=== PATIENT | female | born 1940 | race American Indian/Alaskan Native ===

== ENCOUNTER 2016-11-24 13:36 | Emergency (ER) | payer MEDICARE ==
[~2016-11-24 13:36] MED LIST: ATIVAN IV ONE; ATIVAN ONE; GEODON IM ONE; WATER FOR INJ (PF) 10 ML ONE
--- NOTE | 2016-11-24 16:03 | Emergency Department Report ---
ED Psych HPI - General Chief Complaint: Psych Stated Complaint: COMBATIVE Time Seen by Provider: 11/24/16 14:58 Source: family Mode of arrival: Ambulatory - History of Present Illness Initial Comments: 76-year-old female with aggressive behavior. Patient was agitated and screaming when she came into the emergency department. She appears to be clearly psychotic. She does not answer any questions in the emergency department. She was initially given Geodon and Ativan on arrival. 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 Absent: scleral icterus, conjunctival injection - ENT ENT exam: Present: mucous membranes dry - Neck Neck exam: Absent: lymphadenopathy, thyromegaly - Respiratory Respiratory exam: Present: normal lung sounds bilaterally. Absent: respiratory distress - Cardiovascular Cardiovascular Exam: Present: regular rate, normal rhythm. Absent: normal heart sounds - GI/Abdominal GI/Abdominal exam: Present: soft. Absent: distended, tenderness - Neurological Exam Neurological exam: Present: alert. Absent: motor sensory deficit - Psychiatric Psychiatric exam: Present: agitated - Skin Skin exam: Present: warm, dry, intact ED Course Vital Signs 11/24/16 14:59 Respiratory 18 Rate ED Medical Decision Making - Lab Data Result diagrams: 11/24/16 15:54 Laboratory Results - last 24 hr 11/24/16 15:54 WBC 10.5 RBC 4.55 Hgb 12.4 Hct 38.8 MCV 85 MCH 27 L MCHC 32 RDW 15.0 Lymph % (Auto) 16.5 [place] % (Auto) 8.5 H Eos % (Auto) 0.5 Baso % (Auto) 0.8 Lymph # 1.7 [place] # 0.9 H Eos # 0.1 Baso # 0.1 Seg Neutrophils % 73.7 H Seg Neutrophils # 7.7 - Medical Decision Making 76-year-old female with a known history of psychiatric illness here with agitation and likely acute psychosis. Plan 1013 the patient for the time being we'll administer additional psychiatric meds as needed. No obvious medical source for symptoms. Plan to medically clear the patient is having normal labs. Portions of this chart were dictated with dictation software. There may be dictation errors contained within this note. Critical care attestation.: If time is entered above; I have spent that time in minutes in the direct care of this critically ill patient, excluding procedure time. ED Disposition Clinical Impression: Dementia, Psychosis Disposition: DC/TX-70 ANOTHER TYPE HLTHCARE Is pt being admited?: No Condition: Stable Referrals: PRIMARY CARE, [Primary Care Provider] - 3-5 Days
[2016-11-24 16:18] LABS: Basophils % (Auto) 0.8 % (0.0-1.8); Eosinophils % (Auto) 0.5 % (0.0-4.3); Hematocrit 38.8 % (30.3-42.9); Hemoglobin 12.4 gm/dl (10.1-14.3); Mean Corpuscular HGB Conc 32 % (30-34); Mean Corpuscular Hemoglobin 27 pg (28-32); Mean Corpuscular Volume 85 fl (79-97); Red Blood Count 4.55 M/mm3 (3.65-5.03); White Blood Count 10.5 K/mm3 (4.5-11.0)
[2016-11-24 16:29] LABS: Alanine Aminotransferase 21 units/L (7-56); Albumin 4.5 g/dL (3.9-5); Albumin/Globulin Ratio 1.2 %; Alkaline Phosphatase 58 units/L (35-129); Anion Gap 16 mmol/L; BUN/Creatinine Ratio 17; Blood Urea Nitrogen 15 mg/dL (7-17); Calcium 10.4 mg/dL (8.4-10.2); Carbon Dioxide 29 mmol/L (22-30); Chloride 100.9 mmol/L (98-107); Glucose 93 mg/dL (65-100); Potassium 4.4 mmol/L (3.6-5.0); Sodium 141 mmol/L (137-145); Total Protein 8.4 g/dL (6.3-8.2)
[2016-11-24 16:30] LABS: Platelet Count 218 K/mm3 (140-440)
[2016-11-24] MEDS ORDERED: GEODON IM ONE ×2 (19:50→19:59)
[2016-11-25] MEDS ORDERED: GEODON IM ONE (08:20)
[2016-11-25] MEDS ORDERED: ATIVAN PO ONE (08:20)
[2016-11-25] MEDS ORDERED: ATIVAN IM ONE (08:31)
[2016-11-25] MEDS ORDERED: WATER FOR INJ (PF) 10 ML ONE (08:37)
[2016-11-25 09:58] LABS: Urine Drugs of Abuse Note Disclamer
[2016-11-25 10:11] LABS: Bilirubin,Urine NEG (Negative); Blood,Urine NEG (Negative); Ketones,Urine TR mg/dL (Negative); Leukocyte Esterase,Urine NEG (Negative); Mucus,Urine FEW /HPF; Nitrite,Urine NEG (Negative); Protein,Urine <15 mg/dL mg/dL (Negative); RBC,Urine < 1.0 /HPF (0.0-6.0); Urobilinogen,Urine < 2.0 mg/dL (<2.0)
--- NOTE | 2016-11-25 13:45 | Consultation ---
History of Present Illness - Reason for Consult Consult date: 11/25/16 Reason for consult: Mental Health Evaluation Requesting physician: SHARON QUARLES - Chief Complaint Chief complaint: "Nonverbal" - History of Present Psychiatric Illness 76-year-old female with aggressive behavior, possibly psychosis. Today patient is calm during the assessment. She would only say a few words to me when questioned. She kept her head covered with the bed sheets the entire time during the assessment. Per the staff, the patient was agitated on admission. Per her ride assembly supervisor Ms Cecile Bain at [phone], she stated that the patient has a mental health dx of schizophrenia and a medical dx of dementia. She stated that the patient has been hospitalized recently at [place] for psychosis. She stated that the patient will not eat and have not taken her medications the past couple weeks. Per Ms Cecile Bain, patient has taken Risperdal in the past. No gestures of SI/HI's. Medications and Allergies Allergies Allergy/AdvReac Type Severity Reaction Status Date / Time No Known Allergies Allergy Unverified 11/24/16 13:37 Home Medications Medication Instructions Recorded Confirmed Last Taken Type No Known Home Medications [No 11/24/16 11/24/16 Unknown History Reported Home Medications] Past psychiatric history - Past Medical History Past Medical History: other (Dementia) Past Surgical History: Other (Unable to assess) - past Psychiatric treatment and history psychiatric treatment history: Unable to obtain psy hx and a fam psy hx. - Social History Social history: other (Per note, live with a ride assembly supervisor) Mental Status Exam - Vital signs Last Vital Signs Temp 98.0 F 11/25/16 04:00 Pulse 85 11/25/16 08:40 Resp 18 11/25/16 08:40 BP 119/63 11/25/16 08:40 Pulse Ox 98 11/25/16 04:00 - Exam Narrative exam: MSE: Appearance: calm Behavior: poor eye contact Speech: regular rate and tone Mood: unable to assess Affect: labile Thought Process: unable to assess Thought Content: no gestures of SI/HI's and VH's Motor Activity: lying in bed, periods of agitation Cognition: A/O x1 Insight: impaired Judgment: impaired Results Result Diagrams: 11/24/16 15:54 11/24/16 15:54 Abnormal lab results 11/24/16 11/24/1611/24/17 Range/Units 15:54 15:54 15:54 MCH 27 L (28-32) pg [place]are % (Auto) 8.5 H (0.0-7.3) % Dare # 0.9 H (0.0-0.8) K/mm3 Seg Neutrophils % 73.7 H (40.0-70.0) % Calcium 10.4 H (8.4-10.2) mg/dL Total Protein 8.4 H (6.3-8.2) g/dL Salicylates < 0.3 L (2.8-20.0) mg/dL All other labs normal. Assessment and Plan Assessment and plan: Impression: Historical Dx: Schizophrenia/Dementia. Unspecified Psychosis. Today patient is calm during the assessment. Patient is functionally declining and cannot take care of herself at this time. Ms Cecile Bain stated that the patient cannot return to her care once discharged. UDS negative. Recommendation/Plan: Continue 1013 with pending placement to [facility]. Left voicemail for her daughter Odalys Bassett at [phone] (for collateral). Start Risperdal 0.5 mg PO HS for psychosis. Delirium precautions below: 1. Frequently reorient patient and involve him/her in their care (simple explanations of procedures, tests, medications). 2. Lights on and shades open during daytime hours. 3. Try to avoid unnecessary interruptions to sleep during nighttime hours. 4. Obtain glasses, hearing aids from home if patient uses these at baseline. 5. Avoid medications that may exacerbate delirium (especially narcotics, barbiturates, ambien, lunesta, benzos, and medications with excessive anticholinergic properties).
[2016-11-25] MEDS ORDERED: HALDOL IM PRN (14:29)
[2016-11-26] MEDS: RisperDAL PO SCH ×2 (00:07→22:32)
--- NOTE | 2016-11-26 13:40 | Progress Note ---
Subjective - Reason for Consult Reason for consult: guarded and not cooperative - Chief Complaint Chief complaint: Patient still mostly non-verbal. She was irritable on examination and refused to engage further. Per discussion with nursing staff, she has not had any verbal or physical aggression. She is engaging in regular PO intake and vitals are stable. Mental Status Exam - Vital signs Last Vital Signs Temp 98.7 F 11/25/16 20:00 Pulse 90 11/25/16 20:00 Resp 17 11/26/16 10:00 BP 115/99 11/25/16 20:00 Pulse Ox 100 11/26/16 10:00 - Exam Affect: depressed, anxious Mood: anxious Thought content: other (ANNETTE) Perceptions: other (ANNETTE) Speech: other (mostly selectively mute) Motor activity: lethargic Level of consciousness: other (sleepy) Sleep Symptoms: None (ANNETTE) Interaction: guarded, uncooperative Assessment and Plan Plan: Patient has been referred to [place] for inpatient level of care to assure she can get assessed and treated for her current illness. Furthermore, she will require placement to another facility as the current caregiver is no longer willing to take her back. Continue current medication regimen
--- NOTE | 2016-11-27 16:58 | Progress Note ---
Subjective - Reason for Consult Consult date: 11/27/16 Reason for consult: psychiatric follow up - Chief Complaint Chief complaint: She asked for assistance to the bathroom and requested assistance in getting her food tray. She stated she wanted to go home. She otherwise did not participate in the interview. Per discussion with nursing staff, she has not had any verbal or physical aggression. Mental Status Exam - Vital signs Last Vital Signs Temp 98.4 F 11/27/16 07:31 Pulse 63 11/27/16 07:31 Resp 18 11/27/16 11:53 BP 102/45 11/27/16 07:31 Pulse Ox 98 11/27/16 11:53 Assessment and Plan - Exam Affect: anxous Mood: anxious Thought content: perseverative about going to the bathroom Perceptions: other (ANNETTE) Speech: loud at times Motor activity: no abnormal movements. Level of consciousness: alert Sleep Symptoms: None (ANNETTE) Interaction: guarded Assessment and Plan Plan: Patient has been referred to [place] for inpatient level of care to assure she can get assessed and treated for her current illness. Furthermore, she will require placement to another facility as the current caregiver is no longer willing to take her back. Continue current medication regimen
[2016-11-27] MEDS: RisperDAL PO SCH (21:32)
--- NOTE | 2016-11-28 11:11 | Progress Note ---
Subjective - Reason for Consult Consult date: 11/28/16 Reason for consult: Psychiatry Follow-up - Chief Complaint Chief complaint: "Hello" 76-year-old female with aggressive behavior, possibly psychosis. Today patient is calm during the assessment. She asked me for something more to eat during the assessment. Patient had to be redirected several time to complete the interview. Patient is more engaging today then the initial assessment 2016. She denies SI/HI's and AVH's. Per the staff, patient is eating her meals and taking her medication. Mental Status Exam - Vital signs Last Vital Signs Temp 98 F 11/27/16 20:15 Pulse 63 11/28/16 04:00 Resp 18 11/27/16 20:15 BP 101/54 11/28/16 04:00 Pulse Ox 98 11/27/16 11:53 - Exam Narrative exam: MSE: Appearance: calm Behavior: poor eye contact Speech: regular rate and tone Mood: "okay" Affect: congruent to mood Thought Process: tangential Thought Content: denies SI/HI's and AVH's Motor Activity: lying in bed Cognition: A/O x2 Insight: limited Judgment: limited Assessment and Plan Impression: Historical Dx: Schizophrenia/Dementia. Unspecified Psychosis. Today patient is calm during the assessment. Patient is functionally declining and cannot take care of herself at this time. Ms Cecile Bain stated that the patient cannot return to her care once discharged. UDS negative. Recommendation/Plan: Continue 1013 with pending placement to [facility] to be assessed and get treated for her current illness. Continue Risperdal 0.5 mg PO HS for psychosis. Delirium precautions below: 1. Frequently reorient patient and involve him/her in their care (simple explanations of procedures, tests, medications). 2. Lights on and shades open during daytime hours. 3. Try to avoid unnecessary interruptions to sleep during nighttime hours. 4. Obtain glasses, hearing aids from home if patient uses these at baseline. 5. Avoid medications that may exacerbate delirium (especially narcotics, barbiturates, ambien, lunesta, benzos, and medications with excessive anticholinergic properties).
[2016-11-28 22:11] VITALS: BP 137/103
== END 2016-11-28 21:30 | disposition other institution (70) ==
LOC: ED 13:36 → EEVIPCON 13:36 → ED 11-28 21:30
DX: F03.90 Unspecified dementia, unspecified severity, without behavioral disturbance, psychotic disturbance, mood disturbance, and anxiety (principal); F31.9 Bipolar disorder, unspecified; F20.9 Schizophrenia, unspecified
CPT/HCPCS: 36415; 80053; 80307; 81001; 85025; 96372; 96374; 99285; G0480; J2060; J3486; 80320

== ENCOUNTER 2017-06-16 11:05 | Emergency (ER) | payer MEDICARE, OTHER ==
[2017-06-16] MEDS ORDERED: NACL 0.9% 1000 ML 1,000 ML IV ONE (11:53)
[2017-06-16] MEDS ORDERED: ZOFRAN IV ONE (11:53)
[2017-06-16 12:12] LABS: Basophils % (Auto) 0.4 % (0.0-1.8); Eosinophils # (Auto) 0.1 K/mm3 (0.0-0.4); Eosinophils % (Auto) 2.3 % (0.0-4.3); Hematocrit 35.1 % (30.3-42.9); Hemoglobin 11.1 gm/dl (10.1-14.3); Lymphocytes # (Auto) 1.2 K/mm3 (1.2-5.4); Lymphocytes % (Auto) 22.6 % (13.4-35.0); Mean Corpuscular HGB Conc 32 % (30-34); Mean Corpuscular Hemoglobin 28 pg (28-32); Mean Corpuscular Volume 88 fl (79-97); Monocytes # (Auto) 0.7 K/mm3 (0.0-0.8); Monocytes % (Auto) 12.5 % (0.0-7.3); Platelet Count 144 K/mm3 (140-440); Red Blood Count 3.97 M/mm3 (3.65-5.03); Red Cell Distribution Width 14.2 % (13.2-15.2)
[2017-06-16 12:25] LABS: Alanine Aminotransferase 9 units/L (7-56); Albumin 3.9 g/dL (3.9-5); BUN/Creatinine Ratio 18; Blood Urea Nitrogen 14 mg/dL (7-17); Calcium 9.3 mg/dL (8.4-10.2); Hemolysis Index 76; Lipase 40 units/L (13-60)
[2017-06-16 12:26] LABS: Bilirubin,Direct < 0.2 mg/dL (0-0.2)
[2017-06-16 12:32] LABS: Free T4 (Free Thyroxine) 0.65 ng/dL (0.76-1.46)
[2017-06-16 12:46] LABS: Bacteria,Urine 1+ /HPF (Negative); Bilirubin,Urine NEG (Negative); Blood,Urine NEG (Negative); Color,Urine Yellow (Yellow); Protein,Urine <15 mg/dL mg/dL (Negative); RBC,Urine < 1.0 /HPF (0.0-6.0); Urobilinogen,Urine < 2.0 mg/dL (<2.0)
--- NOTE | 2017-06-16 14:10 | Emergency Department Report ---
ED General Adult HPI - General Chief complaint: Nausea/Vomiting/Diarrhea Stated complaint: NAUSEA/VOMITING/DIARRHEA Time Seen by Provider: 06/16/17 11:45 Source: patient, EMS Mode of arrival: Stretcher Limitations: No Limitations - History of Present Illness Initial comments: This is a 76-year-old female that arrives from [facility]. The patient states that she had diarrhea and nausea and vomiting last night but is not nauseated now. He does not complain of fever or chills or abdominal pain. She denies urinary symptoms. She has not complaining of any respiratory symptoms. She is reluctant to have an IV initiated. She states that she has not had good food intake lately. She appears to have some degree of dementia but no she is in the hospital. -: Gradual, hour(s) Severity scale (0 -10): 0 Associated Symptoms: denies other symptoms - Related Data Previous Rx's Medication Instructions Recorded Last Taken Type ALPRAZolam [Xanax TAB] 0.25 mg PO BID #20 tablet 05/03/17 Unknown Rx Levothyroxine [Synthroid] 75 mcg PO DAILY@0600 #30 tablet 05/03/17 Unknown Rx QUEtiapine [SEROquel] 25 mg PO HS #30 tablet 05/03/17 Unknown Rx Levothyroxine Sodium [Synthroid] 100 mcg PO QDAY #30 tablet 06/16/17 Unknown Rx Allergies Allergy/AdvReac Type Severity Reaction Status Date / Time No Known Allergies Allergy Unverified 11/24/16 13:37 ED Review of Systems ROS: Stated complaint: NAUSEA/VOMITING/DIARRHEA Other details as noted in HPI Comment: Unobtainable due to pts medical conditions (Limited secondary to dementia) ED Past Medical Hx - Past Medical History Previous Medical History?: Yes Hx Hypertension: Yes 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) Hx Dementia: Yes - Surgical History Past Surgical History?: No - Social History Smoking Status: Former Smoker - Medications Home Medications: Home Medications Medication Instructions Recorded Confirmed Last Taken Type ALPRAZolam [Xanax TAB] 0.25 mg PO BID #20 tablet 05/03/17 Unknown Rx Levothyroxine [Synthroid] 75 mcg PO DAILY@0600 #30 tablet 05/03/17 Unknown Rx QUEtiapine [SEROquel] 25 mg PO HS #30 tablet 05/03/17 Unknown Rx Levothyroxine Sodium [Synthroid] 100 mcg PO QDAY #30 tablet 06/16/17 Unknown Rx ED Physical Exam - General Limitations: No Limitations General appearance: alert, in no apparent distress - Head Head exam: Present: atraumatic, normocephalic - Eye Eye exam: Present: normal appearance. Absent: scleral icterus - ENT ENT exam: Present: mucous membranes moist - Neck Neck exam: Present: normal inspection. Absent: tenderness, meningismus - Respiratory Respiratory exam: Present: normal lung sounds bilaterally. Absent: respiratory distress - Cardiovascular Cardiovascular Exam: Present: regular rate, normal rhythm. Absent: systolic murmur, diastolic murmur, rubs, gallop - GI/Abdominal GI/Abdominal exam: Present: soft, normal bowel sounds. Absent: distended, tenderness, guarding, rebound, rigid - Extremities Exam Extremities exam: Present: normal inspection - Back Exam Back exam: Present: normal inspection. Absent: CVA tenderness (R), CVA tenderness (L) - Neurological Exam Neurological exam: Present: alert, oriented X3, CN II-XII intact. Absent: motor sensory deficit - Psychiatric Psychiatric exam: Present: agitated, flat affect - Skin Skin exam: Present: warm, dry, intact, normal color. Absent: rash ED Course Vital Signs 06/16/17 06/16/17 06/16/17 11:22 11:27 11:34 Temperature 97.7 F 97.7 F Pulse Rate 96 H 73 Respiratory 18 16 16 Rate Blood Pressure 122/82 Blood Pressure 107/68 [Left] O2 Sat by Pulse 98 97 Oximetry - Reevaluation(s) Reevaluation #1: Little bit dry so I anticipated giving her IV fluid. She declined this. Her laboratory studies were within acceptable limits. She is cleared for discharge and primary care follow-up. I am going to increase her Synthroid 200 g. She needs follow-up with a primary care physician. I will refer her to the [facility] [employer] representative if she does not have one. 06/16/17 14:35 06/16/17 14:36 ED Medical Decision Making - Lab Data Result diagrams: 06/16/17 11:54 06/16/17 11:54 Laboratory Results - last 24 hr 06/16/17 06/16/17 06/16/17 11:54 11:54 11:54 WBC 5.5 RBC 3.97 Hgb 11.1 Hct 35.1 MCV 88 MCH 28 MCHC 32 RDW 14.2 Plt Count 144 Lymph % (Auto) 22.6 [place] % (Auto) 12.5 H Eos % (Auto) 2.3 Baso % (Auto) 0.4 Lymph # 1.2 [place] # 0.7 Eos # 0.1 Baso # 0.0 Seg Neutrophils % 62.2 Seg Neutrophils # 3.4 Sodium 138 Potassium 4.3 Chloride 95.3 L Carbon Dioxide 30 Anion Gap 17 BUN 14 Creatinine 0.8 Estimated GFR > 60 BUN/Creatinine Ratio 18 Glucose 88 Calcium 9.3 Magnesium 1.80 Total Bilirubin 0.30 Direct Bilirubin < 0.2 Indirect Bilirubin 0.1 AST 18 ALT 9 Alkaline Phosphatase 60 Total Protein 7.2 Albumin 3.9 Albumin/Globulin Ratio 1.2 Lipase 40 TSH Free T4 Urine Color Urine Turbidity Urine pH Ur Specific [place] Urine Protein Urine Glucose (UA) Urine Ketones Urine Blood Urine Nitrite Urine Bilirubin Urine Urobilinogen Ur Leukocyte Esterase Urine WBC (Auto) Urine RBC (Auto) U Epithel Cells (Auto) Urine Bacteria (Auto) 06/16/17 06/16/17 11:54 12:23 WBC RBC Hgb Hct MCV MCH MCHC RDW Plt Count Lymph % (Auto) [place] % (Auto) Eos % (Auto) Baso % (Auto) Lymph # [place] # Eos # Baso # Seg Neutrophils % Seg Neutrophils # Sodium Potassium Chloride Carbon Dioxide Anion Gap BUN Creatinine Estimated GFR BUN/Creatinine Ratio Glucose Calcium Magnesium Total Bilirubin Direct Bilirubin Indirect Bilirubin AST ALT Alkaline Phosphatase Total Protein Albumin Albumin/Globulin Ratio Lipase TSH 27.650 H Free T4 0.65 L Urine Color Yellow Urine Turbidity Clear Urine pH 5.0 Ur Specific [place] 1.013 Urine Protein <15 mg/dl Urine Glucose (UA) Neg Urine Ketones Neg Urine Blood Neg Urine Nitrite Neg Urine Bilirubin Neg Urine Urobilinogen < 2.0 Ur Leukocyte Esterase Neg Urine WBC (Auto) 1.0 Urine RBC (Auto) < 1.0 U Epithel Cells (Auto) 1.0 Urine Bacteria (Auto) 1+ Critical care attestation.: If time is entered above; I have spent that time in minutes in the direct care of this critically ill patient, excluding procedure time. ED Disposition Clinical Impression: Vomiting and diarrhea Hypothyroidism Qualifiers: Hypothyroidism type: unspecified Qualified Code(s): E03.9 - Hypothyroidism, unspecified Disposition: DC- TO HOME OR SELFCARE Is pt being admited?: No Does the pt Need Aspirin: No Condition: Stable Instructions: Acute Diarrhea (ED), Hypothyroidism (ED) Additional Instructions: Increase Synthroid to 100 g from 75. Follow-up on your thyroid levels. Follow -up with a primary care physician. Return as needed any acute change or problem. Prescriptions: Levothyroxine Sodium [Synthroid] 100 mcg PO QDAY #30 tablet Referrals: PRIMARY CARE [Primary Care Provider] - 3-5 Days Time of Disposition: 14:37
[2017-06-16 19:41] VITALS: BP 98/54
== END 2017-06-16 19:41 | disposition home or self-care (01) ==
LOC: ED 11:05
DX: E03.9 Hypothyroidism, unspecified (principal); R11.10 Vomiting, unspecified; R19.7 Diarrhea, unspecified; I10 Essential (primary) hypertension; F31.9 Bipolar disorder, unspecified; F20.9 Schizophrenia, unspecified; Z87.891 Personal history of nicotine dependence
CPT/HCPCS: 36415; 80048; 80074; 81001; 83690; 83735; 84439; 84443; 85025; 99283